=== PATIENT | male | born 1940 | race Hispanic/Latino ===

== ENCOUNTER → 2022-10-10 | Outpatient (CLI) | payer MEDICARE ==
[~2022-10-10] MED LIST: ASPI-1443 PO; ATEN25TA PO; ATOR20TA65 PO; DIATR MEGLU/DIATRIZOATE SODIUM 30 ML BOTTLE ONE; METO10TA3 PO; PANT40TA54 PO; SUCR1ORA15 PO; TAMS-1 PO
== END | disposition home or self-care (01) ==
LOC: RAH 08:38
PROVIDERS: ATTEND Surgery
DX: K57.30 Diverticulosis of large intestine without perforation or abscess without bleeding (principal); Z90.49 Acquired absence of other specified parts of digestive tract
CPT/HCPCS: 74270; Q9963 ×2